=== PATIENT | male | born 1950 | race Caucasian/White ===

== ENCOUNTER 2024-07-04 13:38 | Outpatient (CLI) | payer MEDICARE | END 2024-07-04 13:39 | disposition home or self-care (01) | LOC: RAD 13:38 | PROVIDERS: ATTEND Internal Medicine | DX: R06.00 Dyspnea, unspecified (principal) | CPT/HCPCS: 71046 ==

== ENCOUNTER 2025-07-04 13:48 | Outpatient (CLI) | payer MEDICARE | END 2025-07-04 13:49 | disposition home or self-care (01) | LOC: RAD 13:48 | PROVIDERS: ATTEND Internal Medicine | DX: J44.9 Chronic obstructive pulmonary disease, unspecified (principal) | CPT/HCPCS: 71046 ==

== ENCOUNTER 2025-08-01 13:32 | Outpatient (CLI) | payer MEDICARE | END 2025-08-01 13:33 | disposition home or self-care (01) | LOC: SCSRAD 13:32 | PROVIDERS: ATTEND Family Medicine | DX: K14.8 Other diseases of tongue (principal) | CPT/HCPCS: 71046 ==